=== PATIENT | female | born 1990 | race Two or more races ===

== ENCOUNTER → 2024-04-14 | Emergency (ER) | payer OTHER ==
[~2024-04-14] VITALS: Ht 175.3 cm; Wt 57.6 kg
[~2024-04-14] MED LIST: KETOROLAC TROMETHAMINE 30 MG VIAL ONE; KETOROLAC TROMETHAMINE 60 MG VIAL IM ONE; ORPHENADRINE CITRATE 30 MG/ML AMPUL IM ONE; ORPHENADRINE CITRATE 30 MG/ML AMPUL ONE
== END | disposition left against medical advice (07) ==
LOC: ER 09:04
DX: M34.9 Systemic sclerosis, unspecified (principal)

== ENCOUNTER 2025-03-18 08:44 | Emergency (ER) | payer OTHER ==
[~2025-03-18] VITALS: Ht 177.8 cm; Wt 57.6 kg
[2025-03-18] MEDS ORDERED: BENZONATATE 100 MG CAPSULE PO ONE (10:45)
[2025-03-18] MEDS ORDERED: GUAIFENESIN 200 MG/10 ML BLIST.PACK PO ONE ×2 (10:45→11:08)
[2025-03-18] MEDS ORDERED: ACETAMINOPHEN 500 MG GEL..CAP PO ONE ×2 (10:45→11:07)
[2025-03-18 12:02] LABS: BASO % 0.8 % (0.1-1.2); EOS # 0.01 (0.04-0.54); EOS % 0.2 % (0.7-7.0); LYMPH # 0.93 (1.18-3.74); LYMPH % 17.5 % (19.3-53.1); MEAN PLATELET VOLUME 13.20 fl (9.4-12.4); MONO # 0.63 (0.24-0.82); MONO % 11.9 % (4.7-12.5); NEUT # 3.65 (1.56-6.13); NEUT % 68.8 % (34.0-71.1); RED CELL DISTRIBUTION WIDTH 11.9 % (11.6-14.4)
[2025-03-18 13:27] LABS: COVID-19 AG NEGATIVE (NEGATIVE)
== END 2025-03-18 15:27 | disposition home or self-care (01) ==
LOC: ER 08:45
PROVIDERS: General Practice
DX: R51.9 Headache, unspecified (principal); R05.8 Other specified cough; R53.1 Weakness; R50.9 Fever, unspecified; R06.02 Shortness of breath; J10.1 Influenza due to other identified influenza virus with other respiratory manifestations; Z20.822 Contact with and (suspected) exposure to COVID-19